=== PATIENT | male | born 1935 | race Caucasian/White ===

== ENCOUNTER 2021-03-24 21:51 | Emergency (ER) | payer OTHER ==
[~2021-03-24] VITALS: Ht 182.9 cm; Wt 136.1 kg
[~2021-03-24 21:51] MED LIST: AMOX1TAB5 PO; COZAAR25 MG; GLIPIZIDE-METF1 EAC2; INTEGRA PLUS C1 EACH PO; LANTUS SOL100 UNIT/1; LEVSIN/SL0.125 MG; PROTONIX40 M1 PO; PROTONIX40 MG
[2021-03-24] MEDS ORDERED: FORTAMET500 MG PO (22:18)
== END 2021-03-24 23:55 | disposition home or self-care (01) ==
LOC: ER 21:51
DX: S00.01XA Abrasion of scalp, initial encounter (principal); F10.229 Alcohol dependence with intoxication, unspecified; W18.09XA Striking against other object with subsequent fall, initial encounter; Y93.89 Activity, other specified; Y92.512 Supermarket, store or market as the place of occurrence of the external cause; Y99.8 Other external cause status; Y90.9 Presence of alcohol in blood, level not specified

== ENCOUNTER 2024-08-12 08:11 | Outpatient (CLI) | payer OTHER ==
[~2024-08-12 08:11] MED LIST changes: +FORTAMET500 MG PO
== END 2024-08-12 09:00 | disposition home or self-care (01) ==
LOC: WOUND MED 08:11
PROVIDERS: ATTEND Surgery
DX: C76.41 Malignant neoplasm of right upper limb (principal); E11.9 Type 2 diabetes mellitus without complications
CPT/HCPCS: 97602; A4927; A6219; A6223